=== PATIENT | female | born 1960 | race Caucasian/White ===

== ENCOUNTER 2018-07-17 07:50 | Day surgery (SDC) | payer BC ==
[2018-07-10 12:00] VITALS: BMI 24.7
[~2018-07-17 07:50] MED LIST: DEXAMETHASONE SOD PHOSPHATE 10 MG/ML 1 ML VIAL IV ONE; DEXAMETHASONE SOD PHOSPHATE 4 MG/ML 1 ML VIAL IV ONE; FAMOTIDINE 20 MG/2 ML VIAL IV ONE; LIDOCAINE 1% 20 ML VIAL (10MG/ML) FOR IV START INTRADERMA PRN; ONDANSETRON 4 MG/2 ML VIAL IVP ONE; SCOPOLAMINE 1.5MG/72HR PATCH TRANSDERM ONE; ceFAZolin 1,000 MG in DEXTROSE/WATER 1 50ML.BAG IV ONE
[2018-07-17] MEDS: OXYMETAZOLINE 0.05% NASL SPRAY 1 SPRAY BOTTLE NASAL ONE ×5 (08:18→08:45)
[2018-07-17] MEDS: LACTATED RINGERS 1,000 ML IV SCH (08:35)
[2018-07-17] MEDS ORDERED: ONDANSETRON 4 MG/2 ML VIAL IVP ONE ×2 (08:41→16:30)
[2018-07-17] MEDS ORDERED: DEXAMETHASONE SOD PHOSPHATE 10 MG/ML 1 ML VIAL IV ONE (08:41)
[2018-07-17] MEDS ORDERED: MIDAZOLAM 2 MG/2 ML VIAL ONE (09:12)
[2018-07-17] MEDS ORDERED: PROPOFOL 10 MG/ML 20 ML VIAL IV ONE (09:12)
[2018-07-17] MEDS ORDERED: HYDROmorphone (PF) 1 MG/ML ONE (09:12)
[2018-07-17] MEDS ORDERED: LIDOCAINE 1% INJ 10MG/ML (20 ML MDV) ONE (09:12)
[2018-07-17] MEDS ORDERED: fentaNYL (PF) 50 MCG/ML 2 ML AMP ONE (09:12)
[2018-07-17] MEDS ORDERED: SUCCINYLCHOLINE CHLORIDE 100 MG/5 ML SYR IV ONE (09:12)
[2018-07-17] MEDS ORDERED: FLUORESCEIN STRIPS 1 MG STRIP MISCELLANE ONE (09:30)
[2018-07-17] MEDS ORDERED: BUPIVACAIN-EPI 0.5%-1:200,000 30 ML VIAL SQ ONE ×2 (09:30)
[2018-07-17] MEDS ORDERED: LIDOCAINE 1%-EPI 1:100,000 20 ML VIAL SQ ONE (09:30)
[2018-07-17] MEDS ORDERED: EPINEPHrine 1 MG/ML (MDV) 30 ML VIAL IRRIGATION ONE (09:31)
[2018-07-17] MEDS ORDERED: BACITRACIN OINT 1 EACH PACKET TOPICAL ONE (10:34)
[2018-07-17] MEDS ORDERED: LACTATED RINGERS 1,000 ML IV ONE ×2 (10:45→15:08)
--- NOTE | 2018-07-17 11:30 | P.OP ---
Date of Procedure: 07/17/18 Preoperative Diagnosis: Chronic pansinusitis Sinonasal polyposis Deviated nasal septum Hypertrophy of bilateral inferior nasal turbinates Postoperative Diagnosis: Same Procedure(s) Performed: Septoplasty Bilateral submucosal resection of the inferior nasal turbinates with outfracturing compression Bilateral functional endoscopic sinus surgery with polypectomy and placement of drug-eluting stents Anesthesia: ERIC Surgeon: Mike Villalta Estimated Blood Loss (ml): 50 Pathology: other (sinonasal) Condition: stable Disposition: PACU Indications for Procedure: This patient is a 58-year-old white female who presented to the office after dental imaging and a planned sinus lift. The patient was found to have widespread chronic sinusitis with polyposis. Evaluation of the sinuses revealed chronic pansinusitis with sinonasal polyposis and total occlusion of the sinuses bilaterally. Patient has had years of constant sinus drainage which was always discolored along with anosmia facial pain and pressure nasal obstruction etc. Patient has failed medical therapy including antibiotics cortisone nasal sprays etc. with no improvement. Surgery was recommended and the patient consented to this procedure. All risks, benefits, and alternative therapies were discussed. Consent was obtained and all questions were answered. Operative Findings: Massive sinonasal polyposis and widespread sinus infection. Patient was found have deviated nasal septum and large obstructive inferior turbinates. Description of Procedure: This patient was taken to the operative room and placed in the supine position. A general inhalation anesthetic was administered to the patient by the department of anesthesia with a functioning IV line in place. The patient was monitored throughout the entire case by the department of anesthesia. The eyes were taped shut for protection. The patient was placed in a slight reverse Trendelenburg position. The patient had previously utilize Afrin nasal spray preoperatively. The nose was evaluated and the septum lateral nasal wall and inferior turbinates were injected with lidocaine 1% with epinephrine 1 100,000 bilaterally. Approximately 10 minutes were allowed wait for full vasoconstrictive effects to take place. At this point a caudal incision was made over the caudal portion of the left septum down to the mucoperichondrium. A mucoperichondrial flap was elevated on the left side and dissection was carried with use of tunnels posteriorly. We then made a crossover incision through the cartilage to the contralateral side and for the mucoperichondrial flap development was performed to the extent of visualization on the contralateral side. After the cartilage was freed with use of several crosshatching incisions and removal of some redundant strips of septal cartilage, the septum was straightened and placed back in the midline. The septum was sutured fixated to the ovarian groove. Excellent straightening occurred and the septum was visibly straight. Incision was closed with a 40 rapid Vicryl. We utilized a running nonlocking fashion for closure of the incision. A quilting stitch was used to reapproximate the septal flaps with use of a 40 rapid Vicryl. We then entered the nose with a 0 and 30 Pres[place] tom endoscope. Previous to this we did inject the lateral nasal wall and middle turbinate and uncinate process with lidocaine 1% with epinephrine 1 100,000. Approximately 10 minutes were allowed wait for full vasoconstrictive effects to take place. Intranasal polyps were noted. They were noted bilaterally. The intranasal polyps were removed with use of a microdebrider. With use of a microdebrider and a pediatric backbiter, we took down the uncinate process bilaterally. We then opened the maxillary sinuses bilaterally. We utilized a microdebrider for this and entered the maxillary sinuses and removed diseased tissue and polypoid tissue. This was done bilaterally. After the maxillary sinuses were opened and the diseased tissue and polyps were removed we entered the ethmoid bulla and with use of a microdebrider and up-biting Grey, we remove the anterior septations and remove diseased tissue from the anterior ethmoids with direct visualization. We then followed the fovea frontalis through the basal lamella and into the posterior ethmoid air cells and did a total ethmoidectomy with removal of polypoid material. Once the ethmoids cells were all taken down we then entered the sphenoid sinus medially and inferiorly underneath the inferior attachment of the superior turbinate. The sphenoid sinus was opened entered and diseased tissue and polyps were removed bilaterally. This was done with a microdebrider and Blakesley. We then entered the frontal sinuses with a giraffe and up-biting Blayogeshley entered on the agar nasi cells. We open the frontal sinuses and removed sinus tissue and polypoid tissue that was diseased. To gain access we used the entellus balloon. We removed diseased material from the frontal sinuses. We explored the frontal sinuses bilaterally. To summarize all sinuses were open all sinuses were explored and we remove diseased tissue and polyps from the sphenoid maxillary and frontal sinuses. Polyps were removed from the nose. Ethmoid sinuses were opened totally. Xerogel was inserted and minimal bleeding was encountered. We utilized propel contour and propel many bilaterally. We also used Surgicel powder. We reinspected the skull base there is no signs of any orbital penetration or signs of any intracranial penetration. The sugical site was reinspected after the xerogel/propel/contour/propell mini was placed and no bleeding was seen. Attention was then paid to the inferior turbinates. The bilateral inferior turbinates were hypertrophic and obstructive. We entered the anterior portion of the inferior turbinates with use of a microdebrider. We remove bone and submucosal elements with use of a microdebrider bilaterally. The inferior turbinates underwent a submucosal resection with removal of submucosal tissue and bone. We obtained a much better and normal in size for breathing. The inferior turbinates were then outfractured and compressed with a Flirtic.comes nasal elevator. Excellent airway was obtained and was symmetric bilaterally. No bleeding was encountered. Intranasal splints were inserted and fixated at the end of the case. We utilized Schultz nasal splints. There will be removed and the patient returns to the office.
[2018-07-17] MEDS: LABETALOL SYRINGE 5 MG/ML IVP ONE ×2 (11:35→11:55)
[2018-07-17] MEDS: HYDROmorphone 0.5 MG/0.5 ML SYRINGE IVP PRN ×2 (11:49→12:32)
[2018-07-17] MEDS ORDERED: hydrALAZINE HCL 20 MG/ML 1 ML VIAL IVP ONE (12:10)
[2018-07-17] MEDS ORDERED: HYDROcodone/APAP 5-325MG 1 EACH TAB PO ONE (13:58)
[2018-07-17] MEDS ORDERED: ACETAMINOPHEN IV (For NPO) 500 MG in EMPTY BAG 1 BAG IVPB STA (14:37)
[2018-07-17] MEDS ORDERED: TRIMETHOBENZAMIDE 100 MG/ML 2 ML VIAL IM STA (14:57)
[2018-07-17] MEDS ORDERED: SCOPOLAMINE 1.5MG/72HR PATCH TRANSDERM ONE (15:39)
[2018-07-17] MEDS ORDERED: ACETAMINOPHEN IV (For NPO) 1,000 MG/100 ML VIAL IVPB ONE (15:39)
[2018-07-17] MEDS ORDERED: PROCHLORPERAZINE 5 MG TAB PO PRN (16:00)
[2018-07-17] MEDS ORDERED: diphenhydrAMINE 50 MG/ML 1 ML VIAL IVP PRN (16:01)
[2018-07-17] MEDS ORDERED: oxyCODONE-APAP 5-325MG 1 EACH TAB PO PRN (16:03)
--- NOTE | 2018-07-17 16:09 | P.PN ---
Subjective Progress Note Date: 07/17/18 Principal diagnosis: Failure to progress through anesthesia This patient underwent sinus surgery which went well. Postoperatively she suffers from nausea and vomiting and facial pain. She describes the pain as an 8 on a 0-1-10. I did remove the nasal splints in an effort to improve her pain but the splint removal did not help. She is very anxious not to go home because her is personalized living manager nurse as a field laboratory operator. Her nausea has not resolved but is improved with medical therapy. She is requesting to stay overnight for for pain control etc. Objective - Vital Signs Vital signs: Vital Signs Temp 98.6 F 07/17/18 11:05 Pulse 54 L 07/17/18 15:21 Resp 16 07/17/18 15:21 BP 148/81 07/17/18 15:21 Pulse Ox 100 07/17/18 15:21 Intake & Output 07/16/18 07/17/18 07/17/18 18:59 06:59 18:59 Intake Total 2049 Output Total 50 Balance 1999 Intake: IV 2049 Output: Estimated Blood Loss 50 - Constitutional General appearance: Present: average body habitus - EENT EENT Comment(s): Patient has no drainage coming from the nose. No complaints of headaches. Only pain is facial. No visual changes. Eyes: Present: PERRLA, fundus normal. Absent: abnormal pupil, photophobia ENT: Present: normal oropharynx. Absent: hard of hearing - Neck Neck: Present: normal ROM. Absent: lymphadenopathy - Integumentary Integumentary: Absent: calor - Neurologic Neurologic: Present: CNII-XII intact. Absent: focal deficits - Musculoskeletal Musculoskeletal: Present: gait normal, generalized weakness, strength equal bilaterally. Absent: right sided weakness, left sided weakness - Psychiatric Psychiatric: Present: A&O x's 3, appropriate affect, intact judgment & insight Assessment and Plan (1) Pain Current Visit: Yes Status: Acute Code(s): R52 - PAIN, UNSPECIFIED SNOMED Code(s): 60075408 (2) Nausea after anesthesia Current Visit: Yes Status: Acute Code(s): T88.59XA - OTHER COMPLICATIONS OF ANESTHESIA, INITIAL ENCOUNTER; R11.0 - NAUSEA SNOMED Code(s): 651850672 Plan: This patient has failed to progress through anesthesia. I did remove the nasal splints. Pain is somewhat better nausea still persistent. We will keep the patient overnight for observation and control of pain and nausea. Close clinical follow-up is planned. Patient has no neurologic symptoms and no drainage from the nose. Time with Patient: Greater than 30
[2018-07-17] MEDS ORDERED: ALBUTEROL NEBULIZED 2.5 MG/3 ML INHALATION PRN (16:12)
[2018-07-17] MEDS ORDERED: ONDANSETRON 4 MG/2 ML VIAL IVP PRN (16:21)
--- NOTE | 2018-07-17 16:31 | P.PN ---
Subjective Progress Note Date: 07/17/18 Principal diagnosis: Postoperative nausea secondary to bipolar medication withdrawal This patient's pain and is going down from a 9 to a 6. She is doing better with splint removal. She tells me that when she withdraws from her bipolar medication she becomes very nauseated. She is due to get her bipolar medication earlier today and therefore she feels that this is a withdrawal symptom. We will consult psychiatry to help us with this issue. A hospitalist we'll also be consulted. Objective - Vital Signs Vital signs: Vital Signs Temp 98.6 F 07/17/18 11:05 Pulse 54 L 07/17/18 15:21 Resp 16 07/17/18 15:21 BP 148/81 07/17/18 15:21 Pulse Ox 100 07/17/18 15:21 Intake & Output 07/16/18 07/17/18 07/17/18 18:59 06:59 18:59 Intake Total 2049 Output Total 50 Balance 1999 Intake: IV 2049 Output: Estimated Blood Loss 50 - Constitutional General appearance: Present: average body habitus, mild distress - EENT EENT Comment(s): No drainage except for when she vomits is a small amount of blood. No clear drainage is seen. Eyes: Present: EOMI, PERRLA ENT: Present: normal oropharynx. Absent: hard of hearing - Neck Neck: Present: normal ROM. Absent: lymphadenopathy - Neurologic Neurologic: Present: CNII-XII intact. Absent: focal deficits - Musculoskeletal Musculoskeletal: Present: gait normal - Psychiatric Psychiatric: Present: A&O x's 3, appropriate affect, intact judgment & insight Assessment and Plan (1) Pain Current Visit: Yes Status: Acute Code(s): R52 - PAIN, UNSPECIFIED SNOMED Code(s): 66597488 (2) Nausea after anesthesia Current Visit: Yes Status: Acute Code(s): T88.59XA - OTHER COMPLICATIONS OF ANESTHESIA, INITIAL ENCOUNTER; R11.0 - NAUSEA SNOMED Code(s): 057047622 Plan: It appears that the patient's nausea is from a withdrawal of her bipolar medication. She tells me that this occurs when she doesn't take her bipolar medication. Unfortunately the nausea keeps us from giving her the medication. We will consult psychiatry to help us with this issue. Continued antinausea medication treatment will be given. Hospitalist will be consult. Time with Patient: Less than 30
[2018-07-17] MEDS ORDERED: PROCHLORPERAZINE SUPPOSITORY 25 MG SUPP RECTAL PRN (16:46)
[2018-07-17] MEDS: oxyCODONE-APAP 5-325MG 1 EACH TAB PO PRN ×2 (18:12→23:37)
[2018-07-17] MEDS: SODIUM CHLORIDE 0.9% 1,000 ML IV SCH (18:14)
[2018-07-17] MEDS: MELOXICAM 7.5 MG TAB PO SCH (18:16)
[2018-07-17] MEDS: PANTOPRAZOLE 40 MG TABLET PO SCH (18:17)
[2018-07-17] MEDS: busPIRone HCl 5 MG TAB PO SCH ×2 (18:18→22:23)
[2018-07-17] MEDS: lamoTRIgine 100 MG TAB PO SCH (22:27)
[2018-07-17] MEDS ORDERED: oxyCODONE-APAP 5-325MG 1 EACH TAB PO STA (22:28)
[2018-07-18] MEDS: oxyCODONE-APAP 5-325MG 1 EACH TAB PO PRN ×3 (04:48→15:13)
[2018-07-18] MEDS: SODIUM CHLORIDE 0.9% 1,000 ML IV SCH (04:49)
[2018-07-18 05:04] VITALS: PULSE 80
[2018-07-18] MEDS ORDERED: LEVOTHYROXINE 100 MCG TAB PO SCH (06:30)
--- NOTE | 2018-07-18 06:44 | P.PN ---
Subjective Progress Note Date: 07/18/18 Principal diagnosis: Failure to progress thru anesthesia, post operative nausea, withdrawl symptoms of bipolar meds Pt is remarkably better over the last 12 hours. She is pain free and nausea is resolved with compazine. She denies headache or facial pain. Her cannot pick her up until later this evening as he is working. Objective - Vital Signs Vital signs: Vital Signs Temp 98.5 F 07/18/18 00:00 Pulse 80 07/18/18 00:00 Resp 17 07/18/18 00:00 BP 124/84 07/18/18 00:00 Pulse Ox 95 07/18/18 00:00 Intake & Output 07/17/18 07/17/18 07/18/18 06:59 18:59 06:59 Intake Total 2750 1060 Output Total 50 Balance 2700 1060 Intake: IV 2750 Intake, IV Titration 1060 Amount Sodium Chloride 0.9% 1, 960 000 ml @ 80 mls/hr IV . [id number] JUAN Rx#:[id number] cefTRIAXone 1,000 mg In 100 Sodium Chloride 0.9% 50 ml @ 100 mls/hr IVPB Q12HR JUAN Rx#:[id number] Output: Estimated Blood Loss 50 Other: # Voids 3 - Constitutional General appearance: Present: average body habitus, cooperative, no acute distress - EENT EENT Comment(s): Scant bloody drainage noted, no clear rhinorrhea seen with head in dependent position. Eyes: Present: EOMI, PERRLA. Absent: ptosis - Neck Neck: Present: normal ROM. Absent: lymphadenopathy - Integumentary Integumentary: Absent: flushed - Musculoskeletal Musculoskeletal: Present: gait normal, strength equal bilaterally - Psychiatric Psychiatric: Present: A&O x's 3 Assessment and Plan (1) Pain Current Visit: Yes Status: Acute Code(s): R52 - PAIN, UNSPECIFIED SNOMED Code(s): 18573245 (2) Nausea after anesthesia Current Visit: Yes Status: Acute Code(s): T88.59XA - OTHER COMPLICATIONS OF ANESTHESIA, INITIAL ENCOUNTER; R11.0 - NAUSEA SNOMED Code(s): 298804553 Plan: Pt is much better and is pain and nausea free. Will continue observation until is able to fern picker pt. Nursing is to call if any changes are noted. Time with Patient: Greater than 30
[2018-07-18 07:25] VITALS: BP 119/70; RESP 16; TEMP 98.4
[2018-07-18] MEDS: LACTATED RINGERS 1,000 ML IV SCH (07:40)
[2018-07-18] MEDS ORDERED: methylPREDNISolone SOD SUCCI 125 MG/2 ML VIAL IV SCH (08:00)
[2018-07-18] MEDS: busPIRone HCl 5 MG TAB PO SCH (08:36)
[2018-07-18] MEDS: lamoTRIgine 100 MG TAB PO SCH (08:37)
[2018-07-18] MEDS: MELOXICAM 7.5 MG TAB PO SCH (08:37)
[2018-07-18] MEDS: PANTOPRAZOLE 40 MG TABLET PO SCH (08:37)
[2018-07-18] MEDS ORDERED: VENLAFAXINE HCL ER 150 MG CAP PO SCH (09:00)
== END 2018-07-18 15:50 | disposition home or self-care (01) ==
LOC: OR 07:50 → 4SSUR 11:10 → OR 07-18 15:50
PROVIDERS: ATTEND Otolaryngology
DX: J32.4 Chronic pansinusitis (principal); J34.2 Deviated nasal septum; J33.8 Other polyp of sinus; J33.9 Nasal polyp, unspecified; J34.3 Hypertrophy of nasal turbinates; T88.59XA Other complications of anesthesia, initial encounter; R11.2 Nausea with vomiting, unspecified; F19.939 Other psychoactive substance use, unspecified with withdrawal, unspecified; J45.909 Unspecified asthma, uncomplicated; K21.9 Gastro-esophageal reflux disease without esophagitis; K22.70 Barrett's esophagus without dysplasia; E05.00 Thyrotoxicosis with diffuse goiter without thyrotoxic crisis or storm; E78.00 Pure hypercholesterolemia, unspecified; D56.3 Thalassemia minor; F31.9 Bipolar disorder, unspecified; F41.9 Anxiety disorder, unspecified; Z79.890 Hormone replacement therapy; Z79.899 Other long term (current) drug therapy; Z88.8 Allergy status to other drugs, medicaments and biological substances; Z72.0 Tobacco use; Z90.710 Acquired absence of both cervix and uterus
CPT/HCPCS: 88305; 88300; 30520; 30140; 31267; 31259; 31253; C2625 ×3; C1726; J0171; J2250; J0360; J1100; J2930; J3250; J2405; J2001; J0696 ×2; J3010; J1170 ×2; J0690; J0131; J0330; J2704